=== PATIENT | male | born 1985 | race Caucasian/White ===

== ENCOUNTER 2020-10-24 22:53 | Emergency (ER) | payer OTHER, SELFPAY ==
--- NOTE | ~2020-10-24 | XR_ITS ---
EXAMINATION: XR chest 2V 10/24/2020 23:21 INDICATION: Cough PROCEDURE: 2 view chest COMPARISON: No prior studies for comparison. FINDINGS: The lungs are clear. The cardiomediastinal silhouette is within normal limits. There are no pleural effusions. There is no pneumothorax suspected. IMPRESSION: 1: NO ACUTE CARDIOPULMONARY DISEASE. Reviewed, dictated and finalized at location A.
[2020-10-24 23:00] VITALS: BP 142/98; PULSE 91; RESP 20; TEMP 36.8; O2SAT 97; O2SAT 98
[2020-10-24] MEDS: BENZONATATE 100 MG CAPSULE 200 MG PO (23:16)
--- NOTE | 2020-10-24 23:20 | ED.URI ---
HPI - URI/Sore Throat General Chief Complaint: Upper Respiratory Infection Stated Complaint: wheezing Time Seen by Provider: 10/24/20 23:05 Source: patient and family Mode of arrival: ambulatory Limitations: no limitations History of Present Illness HPI Narrative: Patient comes in with what he says is a cough and sore throat. Sore throat has been ongoing for a couple of days. He has had no fever or chills. He has had minimal clear sputum production at home. He has thought he had some wheezing at home. It appears he comes in mostly due to anxiety associated with the cough and sore throat. Severity of cough and sore throat has been mild for both, but he has been anxious. Nothing has made this better or worse at home. MD elicited complaint: cough and sore throat Onset (ago): day(s) Consistency: intermittent Severity: mild Description of mucous: watery Able to tolerate fluids by mouth: Yes Exacerbating factors: nothing Relieving factors: nothing Context: sick contacts Associated symptoms: denies other symptoms Treatments prior to arrival: cold medicine Related Data Home Medications Medication Instructions Recorded Confirmed bupropion HCl 300 mg PO QAM 10/24/20 10/24/20 cariprazine 4.5 mg PO DAILY 10/24/20 10/24/20 dextroamphetamine-amphetamine 10 mg PO DAILY 10/24/20 10/24/20 [Adderall XR] hydrochlorothiazide 12.5 mg PO DAILY 10/24/20 10/24/20 Allergies Allergy/AdvReac Type Severity Reaction Status Date / Time Penicillins Allergy Unknown HIVES Verified 12/27/18 17:17 Review of Systems Constitutional: Constitutional: Reports no additional constitutional complaints Eyes: Eyes: Reports no additional eye complaints ENT: Reports system reviewed and no additional complaints, except as documented Cardiovascular: Cardiovascular: Reports no additional cardiovascular complaints Respiratory: Respiratory: Reports no additional respiratory complaints Gastrointestinal: Gastrointestinal: Reports no additional gastrointestinal complaints Genitourinary: Genitourinary: Reports no additional male genitourinary complaints Musculoskeletal: Musculoskeletal: Reports no additional musculoskeletal complaints Integumentary/Breasts: Skin/Breast: Reports system reviewed and no additional complaints, except as docu Neurologic: Reports system reviewed and no additional complaints, except as documented Psychiatric: Psychiatric: Reports no additional psychiatric complaints Endocrine: Endocrine: Reports no additional endocrine complaints Hematologic/Lymphatic: Hematologic/Lymphatic: Reports no additional hematologic/lymphatic complaints Allergic/Immunologic: Allergic/Immunologic: Reports no additional allergic/immunologic complaints [facility] Past Medical History Medical History (Updated 10/24/20 @ 23:32 by Kel Deluna MD) Anxiety disorder Bipolar 1 disorder Hypertension Surgical History Surgical History (Updated 10/24/20 @ 23:27 by Kel Deluna MD) No significant past surgical history Family History Family History (Updated 10/24/20 @ 23:27 by Kel Deluna MD) Mother Diabetes mellitus Social History Social History (Updated 10/24/20 @ 23:27 by Kel Deluna MD) Smoking status: Never smoker Alcohol intake: never Exam Const: General: no acute distress Orientation/consciousness: patient oriented x3 Other: appears anxious HENMT: Head: normal to inspection Ears: external ears normal and TM's normal bilaterally Face and sinus: normal facial exam Mouth: Yes Normal oral and palatal mucosa present Throat: posterior oropharynx normal Eyes: Conjunctivae: conjunctivae normal Neck: Neck: normal visual inspection Chest: Chest palpation & inspection: normal inspection of the chest Resp: Effort & Inspection: normal respiratory effort Other: very soft mild inspiratory wheeze Cardio: Rate: regular rate Rhythm: regular rhythm GI: GI Palp: Yes Soft to palpation (nontender) Skin: General skin exam: no
[2020-10-24 23:35] VITALS: BP 134/87; PULSE 89; RESP 20; O2SAT 98
== END 2020-10-24 23:39 | disposition home or self-care (01) ==
PROVIDERS: Emergency Provider Emergency Medicine
DX: B34.9 Viral infection, unspecified (principal)
CPT/HCPCS: 71046; 99283; A9270